=== PATIENT | female | born 1985 | race Caucasian/White ===

== ENCOUNTER 2018-02-22 22:59 | Emergency (ER) | payer BC ==
[~2018-02-22] VITALS: Ht 157.5 cm; Wt 154.2 kg
[2018-02-22 23:05] VITALS: BP_SYST 146
--- NOTE | 2018-02-22 23:15 | NUR ---
Patient to ER bed 8 to gown for evaluation. Side rails up. Report given to ESVIN Brothers.
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
--- NOTE | 2018-02-22 23:30 | NUR ---
ER at bedside examining patient.
[2018-02-22] MEDS: ACETAMINOPHEN/CODEINE 300 MG-30 MG TABLET PO ONE (23:47)
--- NOTE | 2018-02-22 23:55 | NUR ---
Patient to radiology for films, able to ambulate without difficulty with slow, steady gait.
--- NOTE | 2018-02-23 00:07 | NUR ---
Patient returned from radiology in stable condition, ambulating without difficulty with slow, steady gait. Awaiting results and dispo.
--- NOTE | 2018-02-23 00:25 | NUR ---
Dr Sykes at bedside speaking with patient regarding results and plan of care, questions answered by Dr Sykes.
[2018-02-23 00:50] VITALS: BP_SYST 130
--- NOTE | 2018-02-23 00:50 | NUR ---
Patient given written and verbal discharge instructions and verbalizes understanding. ER MD discussed with patient the results and treatment provided. Patient in stable condition. ID arm band removed. Rx of Tylenol with Codeine given. Patient educated on pain management and to follow up with PMD. Pain Scale 0. Opportunity for questions provided and answered. Medication side effect fact sheet provided. Patient left ER in no acute distress, able to ambulate without difficulty with slow, steady gait. Patient reports that she will take an Uber home. No adverse reaction noted to medication.
== END 2018-02-23 00:50 | disposition home or self-care (01) ==
LOC: SED 22:59
DX: S40.012A Contusion of left shoulder, initial encounter (principal); J45.909 Unspecified asthma, uncomplicated; V43.52XA Car driver injured in collision with other type car in traffic accident, initial encounter; Y93.89 Activity, other specified; Y92.411 Interstate highway as the place of occurrence of the external cause; Y99.8 Other external cause status
CPT/HCPCS: 73000-TC; 73030; 99283

== ENCOUNTER 2018-08-05 19:55 | Emergency (ER) | payer BC, OTHER ==
[~2018-08-05] VITALS: Ht 157.5 cm; Wt 124.3 kg
[2018-08-05 19:58] VITALS: BP_SYST 133
[2018-08-05] MEDS ORDERED: MORPHINE 4 MG/ML INJ. SYRINGE IM ONE (20:30)
[2018-08-05 22:34] VITALS: BP_SYST 130
== END 2018-08-05 22:34 | disposition home or self-care (01) ==
LOC: SED 19:55
DX: S09.90XA Unspecified injury of head, initial encounter (principal); J45.909 Unspecified asthma, uncomplicated; Z90.49 Acquired absence of other specified parts of digestive tract; W18.09XA Striking against other object with subsequent fall, initial encounter; Y93.89 Activity, other specified; Y92.89 Other specified places as the place of occurrence of the external cause; Y99.8 Other external cause status
CPT/HCPCS: 70450; 72125; 81025; 96372; 99284; J2270